=== PATIENT | female | born 1975 | race African-American/Black ===

== ENCOUNTER 2016-04-11 22:00 | Inpatient (IN) | payer OTHER ==
--- NOTE | ~2016-04-11 | PN ---
Unit #: [id number] #: [id number] Patient: LYLE TELLEZ [id number] [facility] [address] [place] [address] [id number] MR#: [id number] NAME: LYLE TELLEZ ROOM: [facility] Age: 41 Sex: F Admission Date: 04/11/2016 : 1975 Attending Physician: Raymond Yung M.D. Admitting Physician: Raymond Yung M.D. Primary Care Physician: Primary Care Physician Eloisa MICHEL NOTES DATE OF SERVICE: 04/17/2016 SUBJECTIVE Ms. Tellez is a 41-year-old female who was seen today and chart was reviewed and case was discussed with the staff. She has been doing fairly well and has been showing improvement in depression and anxiety and has been cooperative with treatment recommendations as she has been taking the medications and tolerating them fairly well. MENTAL STATUS EXAMINATION Middle-aged female who was casually dressed with fair personal hygiene, appears to be in no acute distress or discomfort. She was awake and alert on interaction with intact orientation. Her mood was anxious with a congruent affect. She denies any suicidal or homicidal ideations. Her insight and judgment remain slightly impaired. TREATMENT PLAN 1. We will continue her on her current treatment protocol. We will monitor her response to the medications and make further adjustments as needed. 2. We will continue to follow up. Dictated by... Silvia Godfrey/sergiol TD: 04/18/2016 14:12 JOB #: [id number] [facility] PROGRESS NOTES X Raymond Yung MD PROGRESS NOTE
--- NOTE | ~2016-04-11 | PN ---
Unit #: [id number] #: [id number] Patient: LYLE TELLEZ [id number] [facility] [address] [place] [address] [id number] MR#: [id number] NAME: LYLE TELLEZ ROOM: [facility] Age: 41 Sex: F Admission Date: 04/11/2016 : 1975 Attending Physician: Raymond Yung M.D. Admitting Physician: Raymond Yung M.D. Primary Care Physician: Primary Care Physician Eloisa MICHEL NOTES DATE OF SERVICE: 04/18/2016 SUBJECTIVE Ms. Tellez is a 41-year-old female with mood disorder, who was seen today and chart was reviewed, and case was discussed with the staff. She appears to be doing better and has been calmer and cooperative with treatment recommendation as she has been taking medications and tolerating them fairly well. MENTAL STATUS EXAMINATION Middle-aged female, who was casually dressed with fair personal hygiene, appears to be in no acute distress or discomfort. She was awake and alert with impaired attention and concentration. Her mood was anxious with a congruent affect. She denies any suicidal or homicidal ideations. Her insight and judgment remain slightly impaired. TREATMENT PLAN 1. We will continue her on her current medications and treatment protocol. We will monitor her response to the medications and make further adjustments as needed. 2. We will continue to follow up. Dictated by... Silvia Godfrey/sergiol TD: 04/19/2016 06:47 JOB #: [id number] [facility] PROGRESS NOTES X Raymond Yung MD PROGRESS NOTE
--- NOTE | ~2016-04-11 | DS ---
Unit #: [id number] #: [id number] Patient: LYLE TELLEZ [id number] [facility] [address] [place] [address] [id number] I MR#: [id number] NAME: LYLE TELLEZ ROOM: P211 Age: 41 Sex: F Admission Date: 04/11/2016 : 1975 Discharge Date: 04/19/2016 Attending Physician: aRymond Yung M.D. Primary Care Physician: Primary Care Physician No DISCHARGE SUMMARY IDENTIFYING DATA Ms. Tellez is a 41-year-old single female, who is a resident of [place], [place], and was transferred to us from [facility] in [place] on a voluntary basis. DISCHARGE DIAGNOSES Psychiatric: Major depressive disorder, recurrent, moderate, without psychotic features; alcohol dependence, moderate and acute withdrawals; opioid dependence, moderate. Medical: Diabetes mellitus. Stressors: Moderate psychosocial stressors. HISTORY OF PRESENT ILLNESS Please see initial psychiatric evaluation for details. PAST PSYCHIATRIC HISTORY Please see initial psychiatric evaluation for details. PAST MEDICAL HISTORY Please see initial psychiatric evaluation for details. HOSPITAL COURSE The patient [facility] and was oriented to the hospital environment. Routine p.r.n. medications were initiated, and she was started back on her home medications and detox protocol was initiated as well and she was closely monitored. She was seen to be anxious, withdrawn, depressed, and seclusive to herself, reportedly was not feeling good; however, she was polite and pleasant and compliant with the treatment recommendation. Her Risperdal and Celexa were initiated to help with mood and depression and was closely monitored. She was taking the medications regularly and was tolerating them fairly well and was able to show a slow, but therapeutic response with significant improvement in depression and anxiety and was denying any suicidal ideations, intent, or plan and was wanting to go home, was seen to have a positive body language, brighter affect, and was excited about wanting to get out of the hospital and was willing to continue treatment on an outpatient basis and as such, it was decided that she will be discharged home and will continue treatment on an outpatient basis. DISCHARGE MEDICATIONS Risperdal 1 mg at bedtime for mood disorder and Celexa 20 mg a day for depression. Unit #: [id number] #: [id number] Patient: LYLE TELLEZ DISCHARGE CONDITION Stable. PROGNOSIS Fair. Dictated by... Silvia Godfrey/lesa TD: 04/19/2016 07:54 JOB #: [id number] DISCHARGE SUMMARY X Raymond Yung MD X DISCHARGE SUMMARY
--- NOTE | ~2016-04-11 | PA ---
Unit #: [id number] #: [id number] Patient: LYLE TELLEZ [id number] [facility] [address] [place] [address] [id number] Brittany MR#: [id number] NAME: LYLE TELLEZ ROOM: P211 Age: 41 Sex: F Admission Date: 04/11/2016 : 1975 Date of Assessment: 04/12/2016 Attending Physician: Raymond Yung M.D. Admitting Physician: Raymond Yung M.D. Primary Care Physician: Primary Care Physician No PSYCHIATRIC ASSESSMENT DATE OF SERVICE 04/12/2016. IDENTIFYING DATA Ms. Begum is a 41-year-old single female, who is a resident of [place], [place] and was transferred to from [facility] on a voluntary basis. CHIEF COMPLAINT "I attempted suicide on 04/10/2016 by overdosing on unknown pills." HISTORY OF PRESENT ILLNESS Ms. Begum is a 41-year-old female, who was transferred to us from [facility] in [place], [place], where she was brought in with a blood alcohol level of 0.222 and reports that she has attempted suicide on 04/10/2016 by overdosing on unknown pills and that had belonged to someone else. The patient reports she also has been drinking and using Percocet, Lortab, and marijuana and that she is still having some thoughts about wanting to . The patient's daughter reported that over the last couple of days, the patient has been decompensating and the patient does endorse increasing depression, anxiety, irritability, restlessness, multiple psychosocial stressors, feelings of hopelessness and helplessness, and suicidal ideations and as such, recommendation for inpatient level of care was made and the patient was medically cleared and then transferred to us. SUBSTANCE ABUSE HISTORY The patient reports history of alcohol, cannabis, cocaine, and opioid abuse and dependence and currently it appears that alcohol and opioids has been her drug of choice. PAST PSYCHIATRIC HISTORY The patient has had history of outpatient psychiatric treatment in the past; however, currently she is not active in any treatment program, is not seeing a psychiatrist, and is not taking any psychotropic medications. PAST MEDICAL HISTORY Diabetes mellitus. ALLERGIES No known medication allergies. CURRENT MEDICATIONS Unit #: [id number] #: [id number] Patient: LYLE TELLEZ None. PERSONAL AND SOCIAL HISTORY A 41-year-old female, who reports that she is single, unemployed, and essentially homeless and has poor social support system. MENTAL STATUS EXAMINATION Middle-aged female who was casually dressed with fair personal hygiene, appears to be in no acute distress or discomfort. She was awake and alert on interaction with intact orientation to time, place, and person. Her mood was anxious and depressed with a congruent affect. Her speech was slow and goal directed. She reports having suicidal ideations, but denies any homicidal ideations, and also denies any auditory or visual hallucinations. Her insight and judgment remain significantly impaired. DIAGNOSTIC IMPRESSION Psychiatric: Major depressive disorder, recurrent, moderate, without psychotic features; alcohol dependence, moderate and acute withdrawals; opioid dependence, moderate. Medical: Diabetes mellitus. Stressors: Moderate psychosocial stressors. TREATMENT PLAN 1. The patient has presented with history of substance abuse and mood disorder, and has been decompensating and will need inpatient hospitalization for detoxification, safety, and stabilization. We will start her back on her home medications. We will adjust the medications and also we will start the detox protocol. We will also consider her to be a candidate for antidepressant therapy. 2. Supportive therapy was provided to the patient. 3. Safe, structured, and nourishing environment will be provided. ESTIMATED LENGTH OF STAY 5 to 7 days. ABILITY TO HELP SELF Limited. WILLINGNESS TO HELP SELF The patient appears to be willing to help self. STRENGTHS 1. Communicative. 2. Cooperative. PROBLEMS 1. Chronic dysphoric symptoms. 2. Poor social support system. DISCHARGE CRITERIA This will be contingent upon the patient's ability to show resolution of her depression and anxiety and her ability to stay safe to herself, particularly after discharge from the hospital. Dictated by... Raymond Yung M.D. Unit #: [id number] #: [id number] Patient: LYLE TELLEZ IAA/modl TD: 04/13/2016 01:07 JOB #: [id number] PSYCHIATRIC ASSESSMENT X Raymond Yung MD PSYCHIATRIC ASSESSMENT
--- NOTE | ~2016-04-11 | HP ---
Unit #: [id number] #: [id number] Patient: LANIE TELLEZ [id number] [place] [address] [id number] I MR#: [id number] NAME: LANIE TELLEZ ROOM: P211 Age: 41 Sex: F Admission Date: 04/11/2016 : 1975 Attending Physician: Raymond Yung M.D. Admitting Physician: Raymond Yung M.D. Primary Care Physician: Primary Care Physician No HISTORY AND PHYSICAL HISTORY OF PRESENT ILLNESS Lanie is a 41 year old admitted to [address] [place] [address] because of her abuse of alcohol and opioids. PAST MEDICAL HISTORY 1. History of polysubstance abuse to include alcohol and opioids. 2. Diabetes mellitus, type two. She is noncompliant with PCP followup. She tells me she was diagnosed a year ago and never followed up to discuss treatment. PAST SURGICAL HISTORY section x4 ALLERGIES No known drug allergies. SOCIAL HISTORY Smokes one pack per day. Drinks at least a 12-pack of beer on a daily basis and admits to abusing opioids. FAMILY HISTORY Medically noncontributory. REVIEW OF SYSTEMS CONSTITUTIONAL: No fever or chills. HEENT: Denies any sore throat, ear pain or runny nose. CARDIOVASCULAR: Denies chest pain, irregular heart rhythm or palpitations. CHEST: Denies shortness of breath or cough. No hemoptysis. GASTROINTESTINAL: Denies nausea, vomiting, diarrhea or chronic constipation. ENDOCRINE: Denies history of increased thirst or urination. No recent significant weight loss or gain. GENITOURINARY: Denies dysuria, frequency, or hematuria. SKIN: Denies any rashes. HEMATOLOGIC: Denies history of increased bleeding or bruising. MUSCULOSKELETAL: Denies any hot, swollen joints. No generalized muscle pain. NEUROLOGIC: Denies problems with vision or speech. No frequent, severe headaches. No numbness, tingling or weakness in any extremities. Denies loss of bladder or bowel control. CURRENT MEDICATIONS Unit #: [id number] #: [id number] Patient: LANIE TELLEZ 1. Detox protocol 2. Celexa 20 mg daily PHYSICAL EXAMINATION GENERAL: Alert, well-nourished, in no apparent distress. VITAL SIGNS: Blood pressure 115/62, heart rate 80, respirations 16, temperature 98.6. WEIGHT: 170 pounds. HEIGHT: 4'11". SKIN: Warm and dry without rash or lesion. HEENT: Normocephalic. TMs not viewed. Oral and nasal passages clear. Conjunctivae clear. Pupils equal, round and reactive to light and accommodation. Extraocular movements intact. NECK: Supple without lymphadenopathy or thyromegaly. HEART: Regular rate and rhythm without murmur. LUNGS: Clear. ABDOMEN: Soft, nontender. : Not done. EXTREMITIES: No evidence of cyanosis, clubbing or edema. Moves all extremities without focal deficit. NEUROLOGICAL: Grossly within normal limits. Cranial Nerves: II: Visual lee are intact. III, IV AND : Extraocular movements are intact. Pupils are equal, round and reactive to light. V: Facial sensation is grossly normal. VII: Facial movements and expression are normal. VIII: Auditory acuity grossly intact. IX, X: Uvula is midline. Phonation is normal. XI: Patient shrugs shoulders and turns head normally. XII: Tongue protrudes in the midline. Sensory and Motor Function: Sensory and motor sensation is grossly normal. Motor: moves all extremities well. Coordination: Gait is normal. Deep Tendon Reflexes: Intact. IMPRESSION 1. Psychiatric admission. 2. History of polysubstance abuse. 3. Patient reports history of diabetes mellitus. She is noncompliant with followup with her PCP and was never started on medication after being diagnosed with type II diabetes a year ago. RECOMMENDATIONS PSYCHIATRIC: Per psychiatrist. MEDICAL: 1. I see no contraindications to participating in facility's activities. 2. Constant carb diet. She knows she needs to followup with her primary care physician upon discharge. MEDICAL PROGNOSIS Good. MEDICAL CONDITION Stable. Dictated by... Unit #: [id number] #: [id number] Patient: LANIE TELLEZ Lito Cruz-Rula. for Silvia Stone/brendan TD: 04/13/2016 01:03 JOB #: [id number] HISTORY AND PHYSICAL X Alicia Valladares X HISTORY AND PHYSICAL
--- NOTE | ~2016-04-11 | PN ---
Unit #: [id number] #: [id number] Patient: LYLE TELLEZ [id number] [facility] [address] [place] [address] [id number] I MR#: [id number] NAME: LYLE TELLEZ ROOM: [facility] Age: 41 Sex: F Admission Date: 04/11/2016 : 1975 Attending Physician: Raymond Yung M.D. Admitting Physician: Raymond Yung M.D. Primary Care Physician: Primary Care Physician Eloisa MICHEL NOTES DATE OF SERVICE: 04/14/2016 SUBJECTIVE Ms. Tellez is a 41-year-old female who was seen today and chart was reviewed, and case was discussed with the staff. She has been anxious, withdrawn, though has not shown any agitation, irritability, and has been cooperative with treatment recommendation as she has been taking the medication and tolerating them fairly well with no reported side effects. MENTAL STATUS EXAMINATION Middle-aged female who was casually dressed with fair personal hygiene, appears to be in no acute distress or discomfort. She was awake and alert with intact orientation. Her mood was anxious with a congruent affect. She denies any suicidal or homicidal ideations. Her insight and judgment remain slightly impaired. TREATMENT PLAN We will continue her on current treatment protocol. We will monitor her response and make further adjustments as needed. Dictated by... Silvia Godfrey/lesa TD: 04/15/2016 01:55 JOB #: [id number] [facility] MICHEL NOTES X Raymond Yung MD PROGRESS NOTE
--- NOTE | ~2016-04-11 | PN ---
Unit #: [id number] #: [id number] Patient: LYLE TELLEZ [id number] [facility] [address] [place] [address] [id number] I MR#: [id number] NAME: LYLE TELLEZ ROOM: [facility] Age: 41 Sex: F Admission Date: 04/11/2016 : 1975 Attending Physician: Raymond Yung M.D. Admitting Physician: Raymond Yung M.D. Primary Care Physician: Primary Care Physician Eloisa MOORE PROGRESS NOTES DATE 04/13/2016 DISCUSSION Ms. Tellez is a 41-year-old female who was seen today and chart was reviewed and case was discussed with the staff. She remains anxious, withdrawn, depressed and rather seclusive to herself. Meanwhile, she has been cooperative with treatment recommendations and has been taking medications and tolerating them fairly well. MENTAL STATUS EXAMINATION Middle-aged female who was casually dressed with fair personal hygiene and appears to be in no acute distress or discomfort. She was awake and alert on interaction with intact orientation. Her mood was anxious and depressed with congruent affect. Her speech is slow and goal-directed. She denies any suicidal or homicidal ideations. Her insight and judgement remains slightly impaired. TREATMENT PLAN 1. Will continue on current treatment protocol. Will monitor her response to the medication and make further adjustments as needed. 2. Will continue to follow up. Dictated by... Silvia Godfrey/keny TD: 04/14/2016 21:25 JOB #: [id number] Unit #: [id number] #: [id number] Patient: LYLE TELLEZ [place]ON[place]NA PROGRESS NOTES X Raymond Yung MD PROGRESS NOTE
--- NOTE | ~2016-04-11 | PN ---
Unit #: [id number] #: [id number] Patient: LYLE TELLEZ [id number] [facility] [address] [place] [address] [id number] I MR#: [id number] NAME: LYLE TELLEZ ROOM: [facility] Age: 41 Sex: F Admission Date: 04/11/2016 : 1975 Attending Physician: Raymond Yung M.D. Admitting Physician: Raymond Yung M.D. Primary Care Physician: Primary Care Physician Eloisa MICHEL NOTES DATE OF SERVICE: 04/15/2016 SUBJECTIVE Ms. Avila is a 41-year-old female, who was seen today and chart was reviewed and the case was discussed with the staff. She reports not feeling good and she was laying in her bed and reports that she has been hearing voices and seeing things 5:00 this morning. Meanwhile, she has not shown any agitation or aggression and has been taking the medications and tolerating them fairly well. MENTAL STATUS EXAMINATION Middle-aged female, who was casually dressed with fair personal hygiene, appears to be in no acute distress or discomfort. She was awake and alert with impaired attention and concentration. Her mood was anxious and depressed with a congruent affect. She denies any suicidal or homicidal ideations. Her insight and judgment remain slightly impaired. TREATMENT PLAN 1. We will continue her on her current medications and treatment protocol. We will monitor her response to the medications and make further adjustments as needed. 2. We will continue to follow up. Dictated by... Silvia Godfrey/lesa TD: 04/15/2016 16:21 JOB #: [id number] [facility] MICHEL NOTES X Raymond Yung MD PROGRESS NOTE
--- NOTE | ~2016-04-11 | CO ---
Unit #: [id number] #: [id number] Patient: LYLE TELLEZ [id number] [place] [address] [id number] I MR#: [id number] NAME: LYLE TELLEZ ROOM: [facility] Age: 41 Sex: F Admission Date: 04/11/2016 : 1975 Attending Physician: Raymond Yung M.D. Primary Care Physician: Primary Care Physician No Consultation Date: 04/12/2016 CONSULTATION REPORT GARTH Dela Cruz is a 41-year-old who gave history of diabetes mellitus. This was outlined and discussed under her admission H and P dated 04/12/2016. Please see H and P dated 04/12/2016. Dictated by... Alicia Valladares P.A.-C. for Silvia Stone/lesa TD: 04/14/2016 22:44 JOB #: [id number] CONSULTATION REPORT X Alicia Valladares CONSULTATION REPORT
--- NOTE | ~2016-04-11 | PN ---
Unit #: [id number] #: [id number] Patient: LYLE TELLEZ [id number] [facility] [address] [place] [address] [id number] MR#: [id number] NAME: LYLE TELLEZ ROOM: [facility] Age: 41 Sex: F Admission Date: 04/11/2016 : 1975 Attending Physician: Raymond Yung M.D. Admitting Physician: Raymond Yung M.D. Primary Care Physician: Primary Care Physician Eloisa MOORE PROGRESS NOTES DATE 04/16/2016 DISCUSSION Ms. Tellez is a 41-year-old female who was seen today and chart was reviewed and case was discussed with the staff. She has been anxious, withdrawn and rather seclusive to herself. Meanwhile, she has been cooperative with treatment recommendations as she has been taking the medications and tolerating them fairly well. MENTAL STATUS EXAMINATION Middle-aged female who was casually dressed with fair personal hygiene, appears to be in no acute distress or discomfort. She was awake and alert on interaction with intact orientation. Her mood was anxious with congruent affect. She denies any suicidal or homicidal ideations. Her insight and judgement remains slightly impaired. TREATMENT PLAN 1. We will continue her on her current medications and treatment protocol. We will monitor her response to the medication and make further adjustments as needed. 2. We will continue to follow up. Dictated by... Silvia Godfrey/brendan TD: 04/18/2016 03:58 JOB #: [id number] Unit #: [id number] #: [id number] Patient: LYLE TELLEZ [place]NA PROGRESS NOTES X Raymond Yung MD PROGRESS NOTE
[2016-04-12 09:51] LABS: THYROID STIMULATING HORMONE 0.67 uIU/ml (0.34-5.60)
[2016-04-12 09:58] LABS: FREE THYROXIN (T4) 0.71 ng/dL (0.58-1.64)
== END 2016-04-19 09:48 | disposition home or self-care (01) | DRG 885 ==
LOC: P2S 22:00 → POF 04-18 14:03 → P2S 04-18 14:10
PROVIDERS: Psychiatry & Neurology Psychiatry
PROC: HZ2ZZZZ Detoxification Services for Substance Abuse Treatment (ICD-10-PCS; principal; 2016-04-11)
DX: F33.1 Major depressive disorder, recurrent, moderate (principal); F11.20 Opioid dependence, uncomplicated; F10.239 Alcohol dependence with withdrawal, unspecified; E11.9 Type 2 diabetes mellitus without complications; F41.9 Anxiety disorder, unspecified; F17.200 Nicotine dependence, unspecified, uncomplicated
CPT/HCPCS: 84439; 84443; 86592